=== PATIENT | female | born 1990 | race Caucasian/White ===

== ENCOUNTER 2022-09-10 14:25 | Outpatient (CLI) | payer OTHER, SELFPAY | END 2022-09-10 14:26 | disposition home or self-care (01) | PROVIDERS: Visit Provider Physician Assistant Medical | DX: R63.4 Abnormal weight loss (principal); R42 Dizziness and giddiness; R07.89 Other chest pain; H53.9 Unspecified visual disturbance | CPT/HCPCS: 80053; 82306; 82607; 83516; 84443; 86703; 86803 ==

== ENCOUNTER 2022-09-22 15:34 | Outpatient (CLI) | payer OTHER, SELFPAY ==
--- NOTE | 2022-09-22 15:30 | CRLHL7_ITS ---
For Patients: As a result of the Century Cures Act, medical imaging exams and procedure reports are released immediately into your electronic medical record. You may view this report before your referring provider. If you have questions, please contact your health care provider. Indication: Dizziness and giddiness. Technique: Noncontrast sagittal T1, axial FLAIR, T2, diffusion, post contrast T1 weighted sequences are provided. No comparisons. Findings: The ventricles, sulci and gyri are normal size, shape and contour for age. The midline structures are centrally located with no evidence of shift. There are no suspicious intra or extra-axial fluid collections. No region of restricted diffusion or suspicious regions of abnormal parenchymal enhancement. Expected flow voids in the cavernous carotids and basilar artery. 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 No convincing evidence suspicious prominent enhancing lesions within the internal auditory canals bilaterally. Impression: 1. No radiographic evidence of acute intracranial abnormalities. Dictated by Markos Contreras MD @ 09/22/2022 7:32:41 PM (Electronically Signed)
== END 2022-09-22 15:35 | disposition home or self-care (01) ==
LOC: MRI 15:35
PROVIDERS: Visit Provider Physician Assistant Medical
DX: R42 Dizziness and giddiness (principal); H53.9 Unspecified visual disturbance; R63.4 Abnormal weight loss
CPT/HCPCS: 70553; A9575